=== PATIENT | female | born 1990 | race Caucasian/White ===

== ENCOUNTER 2020-07-17 09:59 | Emergency (ER) | payer OTHER ==
[~2020-07-17] VITALS: Ht 154.9 cm; Wt 54.5 kg
[2020-07-17 10:14] VITALS: Ht 154.9 cm; Wt 54.5 kg
[2020-07-17] MEDS ORDERED: VISTARIL50 MG PO (11:13)
[2020-07-17 11:27] VITALS: BP 111/79
== END 2020-07-17 11:28 | disposition home or self-care (01) ==
LOC: D.ER 09:59
DX: F41.9 Anxiety disorder, unspecified (principal); F15.10 Other stimulant abuse, uncomplicated; F43.9 Reaction to severe stress, unspecified